=== PATIENT | male | born 1980 | race Caucasian/White ===

== ENCOUNTER 2016-10-29 22:29 | Emergency (ER) | payer BC ==
[2016-10-30] MEDS ORDERED: Silver Sulfadiazine 1%* 20 GM TOPICAL ONE
[2016-10-30 00:27] VITALS: BP 124/85
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
== END 2016-10-30 00:24 | disposition home or self-care (01) ==
LOC: ED 22:29
DX: T23.409A Corrosion of unspecified degree of unspecified hand, unspecified site, initial encounter (principal); T65.891A Toxic effect of other specified substances, accidental (unintentional), initial encounter; Y93.89 Activity, other specified; Y92.89 Other specified places as the place of occurrence of the external cause
CPT/HCPCS: 99281